=== PATIENT | male | born 1980 | race Caucasian/White ===

== ENCOUNTER 2018-08-12 11:44 | Emergency (ER) | payer OTHER ==
[2018-08-12 12:55] VITALS: BP 130/90; RESP 16; O2SAT 99
== END 2018-08-12 12:42 | disposition home or self-care (01) | DRG 605 ==
LOC: ED 11:44
DX: S61.411A Laceration without foreign body of right hand, initial encounter (principal); W25.XXXA Contact with sharp glass, initial encounter
CPT/HCPCS: 12001; 99284; G0168